=== PATIENT | male | born 1970 | race Caucasian/White ===

== ENCOUNTER → 2018-12-09 | Outpatient (CLI) | payer OTHER | LOC: BMCIMAGING 11:19 | PROVIDERS: ATTEND Family Medicine | DX: S82.65XD Nondisplaced fracture of lateral malleolus of left fibula, subsequent encounter for closed fracture with routine healing (principal); V18.0XXD Pedal cycle driver injured in noncollision transport accident in nontraffic accident, subsequent encounter ==

== ENCOUNTER → 2019-01-12 | Outpatient (CLI) | payer OTHER | LOC: FIMAGING 10:17 | PROVIDERS: ATTEND Physician Assistant | DX: M48.02 Spinal stenosis, cervical region (principal); R53.1 Weakness; M50.31 Other cervical disc degeneration, high cervical region ==

== ENCOUNTER 2019-02-04 05:46 | Observation (INO) | payer OTHER ==
[2019-02-04] MEDS ORDERED: ceFAZolin 2 GM/DEXTROSE 100 ML IV ONE (06:02)
[2019-02-04] MEDS ORDERED: ACETAMINOPHEN 500 MG TAB PO ONE (06:02)
[2019-02-04] MEDS ORDERED: GABAPENTIN 300 MG CAP PO ONE (06:02)
[2019-02-04] MEDS ORDERED: LR 1,000 ML IV ONE (06:04)
--- NOTE | 2019-02-04 06:36 | PDHPUP ---
History & Physical Update H&P update statement: This history and physical update is based on an assessment of the patient which was completed after admission or registration (within 24 hours), but prior to the surgery/procedure. H&P update: H&P reviewed & patient examined, no change in patient's condition since H&P completed (Consents signed and site marked. All questions answered.)
[2019-02-04] MEDS ORDERED: CHLORHEXIDINE GLUC HIBICLENS 118 ML BTL TP ONE (06:41)
[2019-02-04] MEDS ORDERED: THROMBIN (BOVINE) 20,000 UNIT VIAL TP ONE (06:41)
[2019-02-04] MEDS ORDERED: BACITRACIN 50,000 UNITS/10 ML SYR IRR ONE (06:42)
--- NOTE | 2019-02-04 07:05 | PDANEPAE ---
ANE History of Present Illness chronic back pain, cord compression, here for C5-C7 ant fusion ANE Past Medical History - Cardiovascular History Hx Hypertension: Yes Hx Arrhythmias: No Hx Chest Pain: No Hx Coronary Artery / Peripheral Vascular Disease: No - Pulmonary History Hx COPD: No Hx Asthma/Reactive Airway Disease: No Hx Recent Upper Respiratory Infection: No Hx Oxygen in Use at Home: No Hx Sleep Apnea: No Sleep Apnea Screening Result - Last Documented: Negative - Neurologic History Hx Cerebrovascular Accident: No Hx Seizures: No Hx Dementia: No - Endocrine History Hx Diabetes: No - Renal History Hx Renal Disorders: No - Liver History Hx Hepatic Disorders: No - Neurological & Psychiatric Hx Hx Neurological and Psychiatric Disorders: Yes Neurological / Psychiatric History Comment: weakness in shoulder and bicep. numbness to pinky - Cancer History Hx Cancer: No - Congenital Disorder History Hx Congenital Disorders: No - GI History Hx Gastrointestinal Disorders: No - Other Health History Other Health History: none - Chronic Pain History Chronic Pain: No - Surgical History Prior Surgeries: wrist and elbow replacement. elbow x 2. facial stitching around eye and nose ANE Review of Systems Review of Systems: - Exercise capacity METS (RN): 6 METS ANE Patient History - Allergies Allergies/Adverse Reactions: Tetanus Vaccines and Toxoid Allergy (Verified 01/29/19 10:02) Other-Enter Comments flu vaccine Allergy (Uncoded 01/29/19 10:02) Other-Enter Comments - Home Medications Home Medications: Atorvastatin Calcium [Lipitor 40 mg (*)] 40 mg PO DAILY 01/26/19 [Last Taken ] Irbesartan/Hydrochlorothiazide [Irbesartan-Hctz 300-12.5 mg Tb] 1 each PO DAILY 01/26/19 [Last Taken Unknown] amLODIPine BESYLATE [Norvasc 10 mg (*)] 10 mg PO DAILY 01/26/19 [Last Taken ] - NPO status NPO Since - Liquids (Date): 02/04/19 NPO Since - Liquids (Time): 05:00 NPO Since - Solids (Date): 02/03/19 NPO Since - Solids (Time): 20:30 - Smoking Hx Smoking Status: Never smoked - Family Anes Hx Family Hx Anesthesia Complications: none ANE Labs/Vital Signs - Vital Signs Blood Pressure: 122/80 Heart Rate: 60 Respiratory Rate: 14 O2 Sat (%): 97 Height: 180.34 cm Weight: 74.843 kg ANE Physical Exam - Airway Neck exam: decreased ROM Mallampati Score: Class 2 Mouth exam: normal dental/mouth exam - Pulmonary Pulmonary: no respiratory distress, no rales or rhonchi - Cardiovascular Cardiovascular: regular rate and rhythym, no murmur, rub, or gallop - ASA Status ASA Status: III ANE Anesthesia Plan Anesthesia Plan: general endotracheal anesthesia Total IV Anesthesia: Yes
[2019-02-04] MEDS ORDERED: MIDAZOLAM 2 MG/2 ML VIAL IVP ONE (07:06)
[2019-02-04] MEDS ORDERED: PROPOFOL 200 MG/20 ML VIAL ONE (07:12)
[2019-02-04] MEDS ORDERED: PHENYLEPHRINE 10 MG/ML SDV ONE (07:12)
[2019-02-04] MEDS ORDERED: REMIFENTANIL HCL 1 MG VIAL ONE ×2 (07:12)
[2019-02-04] MEDS ORDERED: PROPOFOL/EMULSION 500 MG/50 ML BOTTLE IV ONE ×3 (07:12→09:13)
[2019-02-04] MEDS ORDERED: LIDOCAINE 2% 100 MG/5 ML SYR ONE (07:12)
[2019-02-04] MEDS ORDERED: LACTULOSE 20 GM/30 ML UDCUP PO PRN (08:48)
[2019-02-04] MEDS ORDERED: BISACODYL 10 MG SUPP PR PRN (08:48)
[2019-02-04] MEDS ORDERED: ONDANSETRON DISINTEGRATING 4 MG TAB PO PRN (08:48)
[2019-02-04] MEDS ORDERED: MAGNESIUM HYDROXIDE 30 ML UDCUP PO PRN (08:48)
[2019-02-04] MEDS ORDERED: METHOCARBAMOL 750 MG TAB PO PRN (08:48)
[2019-02-04] MEDS ORDERED: oxyCODONE IR 5 MG TAB PO PRN (08:48)
[2019-02-04] MEDS ORDERED: POLYETHYLENE GLYCOL 3350 17 GM PKT PO PRN (08:48)
[2019-02-04] MEDS ORDERED: diphenhydrAMINE 25 MG CAP PO PRN (08:48)
[2019-02-04] MEDS ORDERED: ONDANSETRON 4 MG/2 ML VIAL IVP PRN (08:48)
[2019-02-04] MEDS ORDERED: HYDROmorphONE/DILAUDID 2 MG/ML INJ ONE (09:19)
[2019-02-04] MEDS ORDERED: MEPERIDINE 25 MG/0.5 ML AMP IVP PRN (09:42)
[2019-02-04] MEDS ORDERED: DIAZEPAM 10 MG/2 ML SYR IVP PRN (09:42)
[2019-02-04] MEDS ORDERED: fentaNYL 100 MCG/2 ML INJ IVP PRN (09:42)
[2019-02-04] MEDS ORDERED: NALOXONE HCL 0.4 MG/ML INJ IVP PRN (09:42)
[2019-02-04] MEDS ORDERED: METOCLOPRAMIDE 10 MG/2 ML VIAL IVP PRN (09:42)
[2019-02-04] MEDS ORDERED: LR 500 ML IV PRN (09:42)
[2019-02-04] MEDS ORDERED: PROMETHAZINE HCL 25 MG/ML INJ IVP PRN (09:42)
--- NOTE | 2019-02-04 10:00 | POSTANESTH ---
Post Anesthetic Evaluation Cardiovascular Status: Normal, Stable Respiratory Status: Normal, Stable Level of Consciousness/Mental Status: Can Participate in Eval, Alert and Oriented Pain Control: Adequate, Prn Tx Ordered Nausea/Vomiting Control: Adequate, Prn Tx Ordered Complications Possibly Related to Anesthesia: None Noted
[2019-02-04] MEDS ORDERED: fentaNYL 100 MCG/2 ML INJ ONE (10:10)
--- NOTE | 2019-02-04 10:25 | POSTOPPROG ---
Post Op Note Date of Operation: 02/04/19 Surgeon: Andry Powers Maintenance Truck Driver: SU Dwyer PAC Anesthesia: GET(General Endotracheal) Pre-op Diagnosis: Cervical stenosis, weakness Post-op Diagnosis: Cervical stenosis, weakness Indication: Cervical stenosis, weakness Procedure: ACDF C5-7 Inf/Abcess present in the surg proc area at time of surgery?: No EBL: Minimal PA Addendum - Addendum .: S: posterior neck pain O: NAD A&Ox3 MAEx4 5/5 and equal in BUE and BLE. A/P 48y/o male s/p ACDF C5-7 -Optimize pain management -Post op xrays pending -DVT prophx: TEDs, SCDs, Lovenox POD3 -PT/OT -Hard collar at all times other that shower and eating. -Please notify NS with any change in neuro/motor exam
[2019-02-04] MEDS ORDERED: METHOCARBAMOL 750 MG TAB ONE (10:34)
[2019-02-04] MEDS: SENNOSIDES/DOCUSATE SODIUM TAB PO SCH ×2 (15:20→21:06)
[2019-02-04] MEDS: FAMOTIDINE 20 MG TAB PO SCH ×2 (15:20→21:05)
[2019-02-04] MEDS: ATORVASTATIN CALCIUM 40 MG TAB PO SCH (15:20)
[2019-02-04] MEDS: ceFAZolin 2 GM/DEXTROSE 100 ML IV SCH ×2 (15:39→23:00)
[2019-02-04] MEDS: ACETAMINOPHEN 500 MG TAB PO SCH ×2 (15:39→23:00)
[2019-02-04] MEDS: NS 1,000 ML IV SCH ×2 (15:39→22:59)
--- NOTE | 2019-02-04 19:15 | GOP ---
[f rep st] OPERATIVE REPORT DATE OF OPERATION: 02/04/2019 SURGEON: Andry Powers MD SPUD SORTER: Yadira Dwyer, SAIRA. ANESTHESIA: General. PREOPERATIVE DIAGNOSIS: 1. C5 through C7 cervical spondylosis with stenosis and myelopathy. 2. Right upper extremity radiculopathy with weakness. 3. Treatment refractory to nonoperative intervention. POSTOPERATIVE DIAGNOSIS: 1. C5 through C7 cervical spondylosis with stenosis and myelopathy. 2. Right upper extremity radiculopathy with weakness. 3. Treatment refractory to nonoperative intervention. PROCEDURE PERFORMED: 1. Anterior arthrodesis with approach to C5, C6, C7. 2. C5-C6 diskectomy with bilateral foraminotomies, osteophytectomies and interbody fusion using a 7 mm titanium-coated PEEK cage filled morselized autograft. 3. C6-C7 diskectomy, bilateral foraminotomies, osteophytectomies and interbody fusion using a 7 mm t itanium-coated PEEK cage with morselized autograft. 4. Anterior cervical fusion, C5-C6-C7 with a 40 mm [employer] [place] translational plate. 5. Use of intraoperative fluoroscopy, less than 1 hour physician time. 6. Neuromonitoring. 7. Use of operating microscope. FINDINGS: SPECIMENS: None. ESTIMATED BLOOD LOSS: 10 mL. INDICATIONS: The patient is a very pleasant, 48-year-old gentleman, who presented to our office with progressive myelopathy including right upper extremity radiculopathy and weakness. The patient had evidence of severe spinal stenosis, C5, C6 and worse at C6-C7 with cord signal changes. After discus satish of the risks, benefits and alternatives and after failing nonoperative intervention, we decided to proceed forth with surgery as described above. DESCRIPTION OF PROCEDURE: The patient was brought to the operating theater and underwent general end otracheal anesthesia without complications. He had Venodynes, DIONNA hose and peripheral lines placed b y Anesthesia. He was maintained supine on the operating table with his head in slight extension. Us ing lateral fluoroscopy and a spinal needle, we then picked our entry point at the C5 through C7 leve ls. This was marked as a transverse incision on the right side of his neck. This area was then prep ped and draped in the usual sterile surgical fashion. A time-out was completed per protocol and the patient received antibiotics within 1 hour of incision. The incision was taken down initially with the scalpel blade. Using monopolar, it was then taken nadine n through the subcutaneous tissues to the level of the platysma. The platysma was over-mined in cran ial and caudal directions. was placed to maintain our exposure. We opened the fibers of the platysma cranially and caudally. Using both blunt and sharp dissection, we then traveled the sloane ne medial to the carotid sheath, lateral to the esophagus and trachea to reach the prevertebral fasci a. We then placed needle in the disk space of C6-C7 and confirmed the level using lateral fluoroscopy. We then elevated the longus colli muscle from the anterior vertebral bodies of C5, C6 and C7. Deep retractors were placed to maintain exposure. The microscope was brought into field to assist with microscopic dissection and maintain illumination and magnification. We placed a [place] p in in the vertebral body of C5 and C6. We placed C5-C6 in mild distraction. We completed a C5-C6 di skectomy with bilateral foraminotomies and osteophytectomies. We prepared the cartilaginous endplate s measured the interbody space. We then placed a 7 mm titanium-coated PEEK cage filled with morseliz ed autograft in the C5-C6 disk space. We moved the [place] pin from C5, placed in C7, and placed C6-C 7 in mild distraction. We completed a C6 diskectomy with bilateral foraminotomies and osteophytectom ies. We prepared the cartilaginous endplates and measured interbody space. We placed a 7 mm titaniu m-coated PEEK cage with morselized autograft into the C6-C7 disk space. We removed the [place] pins a nd drilled down the anterior osteophytes and secured a 40 mm [employer] [place] Translational plate o nto the vertebral bodies of C5, C6 and C7. AP and lateral x-rays demonstrated good placement of the hardware. The wound was irrigated copiously with bacitracin irrigation. We then closed the wound in multiple layers using Vicryl sutures in the deep layers and Dermabond for the skin. The patient's w ounds were dressed sterilely. He was then awakened, extubated and taken to the recovery room in stab le condition. There were no complications and no noted changes on neuromonitoring throughout the procedure. COMPLICATIONS: None. /[id number]/MODL
[2019-02-05] MEDS: ACETAMINOPHEN 500 MG TAB PO SCH (07:13)
[2019-02-05 08:30] VITALS: BP 135/83
[2019-02-05] MEDS ORDERED: IRBESARTAN 150 MG TAB PO SCH (09:00)
[2019-02-05] MEDS ORDERED: HYDROCHLOROTHIAZIDE 12.5 MG CAP PO SCH (09:00)
--- NOTE | 2019-02-05 09:18 | NEUSURGPN ---
Date of Surgery: 02/04/19 Post Op Day: 1 Assessment/Plan: 48 yo male s/p ACDF C5-7 - neuro stable - pain controlled - hard collar - postop x-rays with hardware in good placement - PT/OT - home later today after seen by therapies Patient seen by myself and Dr. Powers. Subjective: Doing well this morning. No UE symptoms. Has a sore throat. Objective: Awake. Alert. PERRL. EOMI Facial expression symmetrical Muscle strength full at 5/5 Sensation intact Incision with dressing c/d/i - Physician Patient Seen by : Priya Neurosurgery Physical Exam - Vitals, I&O, Labs I and O 02/04/19 02/05/19 02/06/19 05:59 05:59 05:59 Intake Total 2850 Balance 2850 Weight 74.843 kg Intake: Oral (ml) 1140 IV Intake (ml) 1500 IV Infused (ml) 210 ceFAZolin 2 GM/DEXTROSE 210 100 ml @ 200 mls/hr IV Q8HRS [facility] Rx#:[id number] Other: Number of Voids Toilet 3 Vital Signs Temp Pulse Resp BP Pulse Ox 36.5 C 67 14 135/83 H 96 02/05/19 08:00 02/05/19 08:00 02/05/19 08:00 02/05/19 08:00 02/05/19 08:00 ICD10 Worksheet Patient Problems: Problems Problem Status Onset Cervical spondylosis Acute - ICD10 Problem Qualifiers (1) Cervical spondylosis
[2019-02-05] MEDS: ATORVASTATIN CALCIUM 40 MG TAB PO SCH (09:51)
[2019-02-05] MEDS: FAMOTIDINE 20 MG TAB PO SCH (09:51)
[2019-02-05] MEDS: SENNOSIDES/DOCUSATE SODIUM TAB PO SCH (09:53)
--- NOTE | 2019-02-05 13:56 | ASMTLACE ---
LACE Length of stay for Answers: 1 day current admission Acuity / Level of Answers: No Care: Did the patient have an inpatient admission? Comorbidities - select Answers: Other Notes: HTN all that apply # of Emergency department Answers: 0 visits in the last 6 months Score: 2 Date Signed: 02/05/2019 01:54 PM Electronically Signed By:YOLANDA Estrada
--- NOTE | 2019-02-05 13:56 | ASMTCMCOM ---
CM Note CM Note Notes: Pt had planned surgery, resides with spouse. PT rec outpatient, OT rec home. Pt medically stable for d/c, no CM d/c needs identified. Date Signed: 02/05/2019 01:55 PM Electronically Signed By:YOLANDA sEtrada
[2019-02-07] MEDS ORDERED: ENOXAPARIN 40 MG/0.4 ML SYR SC SCH (09:00)
== END 2019-02-05 10:35 | disposition home or self-care (01) ==
LOC: F3N 05:46
PROVIDERS: ADMIT Neurological Surgery; ATTEND Neurological Surgery
DX: M47.12 Other spondylosis with myelopathy, cervical region (principal); M47.22 Other spondylosis with radiculopathy, cervical region; I10 Essential (primary) hypertension
CPT/HCPCS: 22551; 22552; 22853; 72040; 76000; 97161; 97165; G0378; C1713; J0690; J1170; J2001; J2250; J2370; J2704; J3010

== ENCOUNTER → 2019-03-15 | Outpatient (CLI) | payer OTHER | LOC: FIMAGING 10:38 ==